=== PATIENT | male | born 1950 | race Caucasian/White ===

== ENCOUNTER 2017-01-23 12:47 | Outpatient (CLI) | payer MEDICARE ==
[2017-01-23 13:12] LABS: Anion Gap 16 mmol/L (10-20); BUN (Urea Nitrogen) 25 mg/dL (8.4-25.7); Calc. Creatinine Clearance 0 mL/min (70-130); Calcium 9.4 mg/dL (7.8-10.44); Carbon Dioxide 27 mmol/L (23-31); Chloride 103 mmol/L (98-107); Estimated GFR-MDRD 48; Glucose 280 mg/dL (80-115); Potassium 3.1 mmol/L (3.5-5.1); Sodium 143 mmol/L (136-145)
== END 2017-01-23 12:48 | disposition home or self-care (01) ==
LOC: MADLAB 12:47
PROVIDERS: ATTEND Internal Medicine Adult Congenital Heart Disease
DX: I50.9 Heart failure, unspecified (principal)
CPT/HCPCS: 36415; 80048

== ENCOUNTER 2017-01-29 11:20 | Outpatient (CLI) | payer MEDICARE ==
[2017-01-29 12:44] LABS: Anion Gap 14 mmol/L (10-20); BUN (Urea Nitrogen) 23 mg/dL (8.4-25.7); Calc. Creatinine Clearance 0 mL/min (70-130); Calcium 9.2 mg/dL (7.8-10.44); Carbon Dioxide 24 mmol/L (23-31); Chloride 109 mmol/L (98-107); Estimated GFR-MDRD 57; Glucose 165 mg/dL (80-115); Potassium 3.9 mmol/L (3.5-5.1); Sodium 143 mmol/L (136-145)
== END 2017-01-29 11:21 | disposition home or self-care (01) ==
LOC: MADLAB 11:20
PROVIDERS: ATTEND Internal Medicine Adult Congenital Heart Disease
DX: I50.9 Heart failure, unspecified (principal)
CPT/HCPCS: 36415; 80048

== ENCOUNTER 2017-02-05 08:52 | Outpatient (CLI) | payer MEDICARE ==
[2017-02-05 09:18] LABS: Anion Gap 13 mmol/L (10-20); BUN (Urea Nitrogen) 22 mg/dL (8.4-25.7); Calc. Creatinine Clearance 0 mL/min (70-130); Calcium 9.3 mg/dL (7.8-10.44); Carbon Dioxide 23 mmol/L (23-31); Chloride 109 mmol/L (98-107); Estimated GFR-MDRD 43; Glucose 354 mg/dL (80-115); Potassium 4.3 mmol/L (3.5-5.1); Sodium 141 mmol/L (136-145)
== END 2017-02-05 08:53 | disposition home or self-care (01) ==
LOC: MADLAB 08:52
PROVIDERS: ATTEND Internal Medicine Adult Congenital Heart Disease
DX: I50.9 Heart failure, unspecified (principal)
CPT/HCPCS: 36415; 80048

== ENCOUNTER 2017-04-30 10:37 | Outpatient (CLI) | payer MEDICARE ==
[2017-04-30 11:30] LABS: Anion Gap 11 mmol/L (10-20); BUN (Urea Nitrogen) 37 mg/dL (8.4-25.7); Calc. Creatinine Clearance 0 mL/min (70-130); Calcium 8.6 mg/dL (7.8-10.44); Carbon Dioxide 23 mmol/L (23-31); Chloride 108 mmol/L (98-107); Estimated GFR-MDRD 42; Glucose 294 mg/dL (80-115); Potassium 4.3 mmol/L (3.5-5.1); Sodium 138 mmol/L (136-145)
[2017-04-30 11:42] LABS: Hemoglobin 11.8 g/dL (14.0-18.0)
[2017-05-02 17:27] LABS: Iron 65 ug/dL (65-175); Iron Binding Capacity, Total 259 mcg/dL (261-462)
== END 2017-04-30 10:38 | disposition home or self-care (01) ==
LOC: MADLAB 10:37
PROVIDERS: ATTEND Internal Medicine Nephrology
DX: N18.3 Chronic kidney disease, stage 3 (moderate) (principal); D63.1 Anemia in chronic kidney disease; D50.9 Iron deficiency anemia, unspecified; R53.82 Chronic fatigue, unspecified
CPT/HCPCS: 36415; 80048; 83540; 83550; 85014; 85018

== ENCOUNTER 2017-05-24 09:50 | Outpatient (CLI) | payer MEDICARE ==
[2017-05-24 10:33] LABS: Anion Gap 14 mmol/L (10-20); BUN (Urea Nitrogen) 35 mg/dL (8.4-25.7); Calc. Creatinine Clearance 0 mL/min (70-130); Calcium 8.9 mg/dL (7.8-10.44); Carbon Dioxide 21 mmol/L (23-31); Chloride 110 mmol/L (98-107); Estimated GFR-MDRD 42; Glucose 293 mg/dL (80-115); Potassium 4.7 mmol/L (3.5-5.1); Sodium 140 mmol/L (136-145)
== END 2017-05-24 09:51 | disposition home or self-care (01) ==
LOC: MADLAB 09:50
PROVIDERS: ATTEND Internal Medicine Adult Congenital Heart Disease
DX: I11.0 Hypertensive heart disease with heart failure (principal); I50.9 Heart failure, unspecified
CPT/HCPCS: 36415; 80048; 83880